=== PATIENT | female | born 1995 | race Caucasian/White ===

== ENCOUNTER → 2018-04-23 11:14 | Outpatient (CLI) | payer OTHER, SELFPAY ==
[2018-04-26 16:47] LABS: Hep B Surface Antibodies Reactive (.)
== END ==
PROVIDERS: Family Provider Family Medicine; PCP Family Medicine; Visit Provider Family Medicine
DX: Z11.59 Encounter for screening for other viral diseases (principal)
CPT/HCPCS: 36415; 86706

== ENCOUNTER → 2019-11-28 13:23 | Outpatient (CLI) | payer OTHER, SELFPAY ==
[2019-11-28 08:07] VITALS: BMI 24.3
[2019-12-04 15:55] LABS: HPV APTIMA, High Risk Negative (Negative)
[2019-12-04 15:56] LABS: HPV Reflexed? YES, CHARGE PATIENT
== END ==
PROVIDERS: PCP Family Medicine; Referring Provider Obstetrics & Gynecology; Visit Provider Obstetrics & Gynecology
DX: Z12.4 Encounter for screening for malignant neoplasm of cervix (principal)
CPT/HCPCS: 87624; 88175; G0145

== ENCOUNTER → 2021-06-17 14:50 | Outpatient (CLI) | payer OTHER, SELFPAY ==
[2020-12-10 08:01] VITALS: BMI 29.9
--- NOTE | 2021-06-17 14:56 | US_ITS ---
STUDY: ULTRASOUND TRANSVAGINAL CLINICAL: Female, 25 years old. Pelvic pain with menses TECHNIQUE: Transvaginal COMPARISON: None. FINDINGS: Normal uterine size measuring 7.4 x 4.4 x 3.0 cm in maximal craniocaudal dimension. There are no myometrial masses. Normal endometrial thickness measuring 2 mm. There are no endometrial masses, and there is no fluid in the endometrial cavity. Normal uterine cervix. Normal right ovary, measuring 1.6 x 1.7 x 1.6 cm. Color Doppler is noted in the ovary. There are multiple follicles without a dominant cyst. Normal left ovary, measuring 2.9 x 1.4 x 1.6 cm. Color Doppler is noted in the ovary. There are multiple follicles without a dominant cyst. There is no free fluid in the pelvis. US/Pelvic (Non ) IMPRESSION: Normal pelvic ultrasound. Electronically Signed: Don Huber DO at 17:03 EDT Tel [phone], Service support ,
--- NOTE | 2021-06-17 14:56 | US_ITS ---
STUDY: ULTRASOUND TRANSVAGINAL CLINICAL: Female, 25 years old. Pelvic pain with menses TECHNIQUE: Transvaginal COMPARISON: None. FINDINGS: Normal uterine size measuring 7.4 x 4.4 x 3.0 cm in maximal craniocaudal dimension. There are no myometrial masses. Normal endometrial thickness measuring 2 mm. There are no endometrial masses, and there is no fluid in the endometrial cavity. Normal uterine cervix. Normal right ovary, measuring 1.6 x 1.7 x 1.6 cm. Color Doppler is noted in the ovary. There are multiple follicles without a dominant cyst. Normal left ovary, measuring 2.9 x 1.4 x 1.6 cm. Color Doppler is noted in the ovary. There are multiple follicles without a dominant cyst. There is no free fluid in the pelvis. US/Transvaginal Non- IMPRESSION: Normal pelvic ultrasound. Electronically Signed: Don Huber DO at 17:03 EDT Tel [phone], Service support ,
== END ==
PROVIDERS: PCP Family Medicine; Referring Provider Obstetrics & Gynecology; Visit Provider Obstetrics & Gynecology
DX: R10.2 Pelvic and perineal pain (principal)
CPT/HCPCS: 76830; 76856

== ENCOUNTER 2021-12-12 10:46 | Outpatient (CLI) | payer OTHER, SELFPAY ==
[2021-12-14 13:37] LABS: HPV Reflexed? NOT INDICATED
== END 2021-12-12 23:59 | disposition short-term general hospital (02) ==
LOC: LABSPEC 10:47
PROVIDERS: PCP Family Medicine; Visit Provider Obstetrics & Gynecology
DX: Z12.4 Encounter for screening for malignant neoplasm of cervix (principal)
CPT/HCPCS: 88175; G0145

== ENCOUNTER → 2023-08-28 | Outpatient (CLI) | payer OTHER, SELFPAY ==
[2023-08-28 11:43] LABS: Hemoglobin A1c 4.8 % (3.8-5.6)
[2023-08-28 14:09] LABS: Estradiol 99.8 pg/mL; Prolactin 9.3 ng/mL; T4 Free Direct 0.62 ng/dL (0.76-1.46); Thyroid Stim Hormone (TSH) 2.71 uIU/mL (0.358-3.74)
[2023-08-31 16:09] LABS: 17-Hydroxyprogesterone 149 ng/dL (.)
[2023-09-03 01:06] LABS: Testosterone Free 2.3 pg/mL (0.0-4.2); Thyroid Peroxidase AB 10 IU/mL (0-34)
== END | disposition home or self-care (01) ==
LOC: PAVLAB 10:58
PROVIDERS: PCP Family Medicine; Referring Provider Nurse Practitioner Women's Health; Visit Provider Nurse Practitioner Women's Health
DX: Z13.29 Encounter for screening for other suspected endocrine disorder (principal); N93.9 Abnormal uterine and vaginal bleeding, unspecified
CPT/HCPCS: 36415; 82627; 82670; 83001; 83036; 83498; 84146; 84402; 84439; 84443; 86376; 82626